=== PATIENT | female | born 1985 | race Caucasian/White ===

== ENCOUNTER 2022-07-12 20:56 | Emergency (ER) | payer BC ==
[~2022-07-12] VITALS: Ht 160 cm; Wt 104.3 kg
[2022-07-12 21:03] VITALS: BP 120/89
--- NOTE | 2022-07-12 21:06 | NUR ---
TO LOBBY A/W BED AMBULATORY
--- NOTE | 2022-07-12 23:57 | NUR ---
PT TO BED 6 AMBULATORY
--- NOTE | 2022-07-13 00:02 | NUR ---
RECEIVED IN BED 6 WITH C/O EPISTAXIS SINCE JANUARY
[2022-07-13] MEDS ORDERED: PHENYLEPHRINE 0.25% 15 ML BTL NS ONE (00:05)
[2022-07-13] MEDS ORDERED: PHENYLEPHRINE 1% 15 ML BTL NS ONE (00:09)
--- NOTE | 2022-07-13 01:03 | NUR ---
Patient discharged with v/s stable. Written and verbal after care instructions given and explained. Patient verbalized understanding. Ambulatory with steady gait. All questions addressed prior to discharge. Advised to follow up with PMD.
== END 2022-07-13 01:03 | disposition home or self-care (01) ==
LOC: MED 20:56
DX: R04.0 Epistaxis (principal)
CPT/HCPCS: 99282